=== PATIENT | female | born 1965 | race Caucasian/White ===

== ENCOUNTER 2016-12-17 08:21 | Day surgery (SDC) | payer BC ==
[~2016-12-17] VITALS: Ht 167.6 cm; Wt 83.0 kg
[~2016-12-17 08:21] MED LIST: LIDO20SO19 PO; MELO-110 PO; PANT40TA4 PO; RANI150T5 PO
[2016-12-17] MEDS ORDERED: ENALAPRIL (09:45)
[2016-12-17] MEDS ORDERED: SIMVASTATIN (09:45)
[2016-12-17 09:48] VITALS: Ht 167.6 cm; Wt 83.0 kg
[2016-12-17] MEDS ORDERED: LIDOCAINE 4% SOLUTION 50 ML BTL ONE (09:53)
[2016-12-17 10:04] VITALS: BP 154/79; PULSE 84; RESP 18
[2016-12-17 10:47] VITALS: BP 132/73; PULSE 73; RESP 18
[2016-12-17] MEDS ORDERED: MIDAZOLAM 1 MG/ML 2 ML INJ ONE ×2 (11:17)
[2016-12-17] MEDS ORDERED: FENTAnyl 50 MCG/ML VIAL ONE (11:17)
--- NOTE | 2016-12-17 12:58 | GILP ---
DATE OF PROCEDURE: PROCEDURE: Esophagogastroduodenoscopy with biopsy. INDICATION: A 51-year-old female undergoing this procedure for persistent epigastric pain. She is also on Mobic. The purpose is to evaluate upper GI tract and find out the cause of the pain. INFORMED CONSENT: The risk of the procedure, related and unrelated complications, anesthetic risks, alternatives discussed. Informed consent was obtained. DESCRIPTION OF PROCEDURE: The patient was brought to the GI lab, sedated with Versed and fentanyl, using 3 mg of Versed and 50 mg of fentanyl. After optimal sedation, scope was passed with much ease into esophagus which was grossly within normal limits. She had a superficial ulcer just above the Z line consistent with the diagnosis of erosive esophagitis, LA class C. Stomach mucosa revealed ch ronic gastritis. Multiple random biopsies obtained to rule out H pylori infection. In the duodenum she had a multiple superficial duodenal ulcer involving the apex and the second part. Ampulla appe ared normal. Retroversion was normal. The introitus of the esophagus also was normal. Scope was r emoved with excellent patient tolerance. IMPRESSION: 1. Erosive esophagitis, LA class C. 2. Chronic gastritis. 3. Multiple superficial duodenal ulcer. PLAN: Start the patient on PPI, pending H pylori urease test. I will see the patient in the office in 2 weeks. Dictated By: AISSATOU EUCEDA/BRAYAN Conf#: [id number] DID#: [id number] CC: DONTAE LYLES MD;*EndCC*
== END 2016-12-17 11:50 | disposition home or self-care (01) ==
LOC: GIL 08:21
PROVIDERS: ATTEND Internal Medicine Gastroenterology
DX: K29.50 Unspecified chronic gastritis without bleeding (principal); K26.9 Duodenal ulcer, unspecified as acute or chronic, without hemorrhage or perforation; Z85.038 Personal history of other malignant neoplasm of large intestine
CPT/HCPCS: 43239; 88305; 88312; J2250; J3010; Z7610